=== PATIENT | female | born 1960 | race Caucasian/White ===

== ENCOUNTER 2016-07-02 20:23 | Emergency (ER) | payer MEDICAID ==
[2016-07-02 20:57] VITALS: BP 126/82
--- NOTE | 2016-07-03 05:57 | ER ---
DATE SEEN: 07/02/2016 CHIEF COMPLAINT: Rash. HISTORY OF PRESENT ILLNESS: This is a 56-year-old female with a rash on the right leg. Small lesion that has been there for approximately 1 week. Not causing any pain or itching, but she is worried about flea bite or scabies. REVIEW OF SYSTEMS: All other systems were unremarkable. ALLERGIES: Erythromycin. PHYSICAL EXAMINATION: VITAL SIGNS: Blood pressure is normal and temperature 97.6. SKIN: There is a dime-sized red flat macule on the right calf that is nontender to palpation. IMPRESSION: Rash. PLAN: The rash appears benign. I advised her to ignore it or use hydrocortisone p.r.n. /[id number] [place]
== END 2016-07-02 20:57 | disposition home or self-care (01) ==
LOC: FB.ED 20:23
DX: R21 Rash and other nonspecific skin eruption (principal); Z88.1 Allergy status to other antibiotic agents
CPT/HCPCS: 99283

== ENCOUNTER 2016-11-07 19:55 | Observation (INO) | payer MEDICAID ==
[2016-11-07] MEDS ORDERED: Aluminum Hydroxide/Magnesium Hydroxide Susp 30 ML Cup PO STA (20:20)
[2016-11-07] MEDS: Sodium Chloride 0.9% 1,000 ML IV SCH (20:20)
[2016-11-07] MEDS ORDERED: Pantoprazole 40 MG Vial IVPUSH ONE (20:24)
--- NOTE | 2016-11-07 20:24 | EDM.PDOC ---
ED HPI GENERAL MEDICAL PROBLEM - General Stated Complaint: CHEST PAIN Time Seen by Provider: 11/07/16 19:55 Source of Information: Reports: Patient, Family History Limitations: Reports: No Limitations - History of Present Illness INITIAL COMMENTS - FREE TEXT/NARRATIVE: 56 y.o. w f with h/o DVT, on Coumadin, came to the ed due to acute onset of SSCP with a pain 10/10. as she arrived here in the ed pain was 6/10, No diaphoresis, no N/V/D. pain is not radiating. 149/65 puls 80 Onset: Today Onset Date: 11/07/16 Onset Time: 19:00 Duration: Minutes:, Constant Location: Reports: Chest Quality: Reports: Burning Severity: Mild Improves with: Reports: Eating Worsens with: Reports: Other (pressure) Context: Reports: Other (eating) Associated Symptoms: Reports: No Other Symptoms - Related Data Allergies Allergy/AdvReac Type Severity Reaction Status Date / Time erythromycin base Allergy Rash Verified 11/07/16 20:56 Home Meds: Home Meds Warfarin Sodium [Jantoven] 5 mg PO BEDTIME 12/09/15 [History] atoMOXetine HCl [Strattera] 80 mg PO BEDTIME 12/09/15 [History] atorvaSTATin [Lipitor] 10 mg PO BEDTIME 12/09/15 [History] Past Medical History HEENT History: Reports: Impaired Vision Cardiovascular History: Reports: Blood Clots/VTE/DVT, High Cholesterol, Hypertension Gastrointestinal History: Reports: Cholelithiasis [employer] History: Reports: Other OB/BYN History: hysterectomy, D&C Musculoskeletal History: Reports: Arthritis Psychiatric History: Reports: Depression - Past Surgical History GI Surgical History: Reports: Cholecystectomy, Colonoscopy Other Female Surgeries/Procedures: lump on the breast Social & Family History - Family History Family Medical History: Noncontributory - Tobacco Use Smoking Status *Q: Never Smoker Second Hand Smoke Exposure: No - Caffeine Use Caffeine Use: Reports: Coffee, Soda, Tea - Recreational Drug Use Recreational Drug Use: No ED ROS GENERAL - Review of Systems Review Of Systems: See Below Constitutional: Reports: No Symptoms HEENT: Reports: No Symptoms Respiratory: Reports: No Symptoms Cardiovascular: Reports: Chest Pain Endocrine: Reports: No Symptoms GI/Abdominal: Reports: No Symptoms : Reports: No Symptoms Musculoskeletal: Reports: No Symptoms Skin: Reports: No Symptoms Neurological: Reports: No Symptoms Psychiatric: Reports: No Symptoms Hematologic/Lymphatic: Reports: No Symptoms Immunologic: Reports: No Symptoms ED EXAM, GENERAL - Physical Exam Exam: See Below Exam Limited By: No Limitations General Appearance: Alert, WD/WN, Mild Distress, Obese Eye Exam: Bilateral Eye: Normal Inspection Ears: Normal External Exam Ear Exam: Bilateral Ear: Auricle Normal Nose: Normal Inspection, Normal Mucosa Throat/Mouth: Normal Inspection, Normal Lips Head: Atraumatic, Normocephalic Neck: Normal Inspection, Supple, Non-Tender Respiratory/Chest: No Respiratory Distress, Lungs Clear, Normal Breath Sounds, No Accessory Muscle Use Cardiovascular: Normal Peripheral Pulses, Regular Rate, Rhythm, No Edema, No Gallop, No JVD, No Murmur Peripheral Pulses: 1+: Femoral (L), Femoral (R) GI/Abdominal: Normal Bowel Sounds (Female) Exam: Deferred Rectal (Female) Exam: Deferred Back Exam: Normal Inspection Extremities: Normal Inspection Neurological: Alert, Oriented, CN II-XII Intact Psychiatric: Normal Affect, Normal Mood Skin Exam: Warm, Dry, Intact, Normal Color EKG INTERPRETATION EKG Date: 11/07/16 Time: 20:00 Rhythm: NSR Rate (Beats/Min): 80 [place]: Normal P-Wave: Present QRS: Normal ST-T: Normal QT: Normal Comparison: NA - No Prior EKG Course - Vital Signs Text/Narrative:: 56 y.o. w f with h/o DVT, on Coumadin, came to the ed due to acute onset of SSCP with a pain 10/10. as she arrived here in the ed pain was 6/10, No diaphoresis, no N/V/D. pain is not radiating. 149/65 pulse 80 PE: Morbid obese w f c/o SSCP Imaging: CXR NAD ECG: NSR please see note above Labs: CBC and BMP normal Troponin < 0.01 D Dimer <100 Impression: Substernal chest pain, H/O DVT (on Coumadin), obesity. DDx Gastritis , CW pain, esophagitis Tx: Pt refused ASA because she is on Coumadin, NTG ointment, NS. Protonix, Maalox Reexam: Pain improved to 2/10 Plan: Admit for observation Last Recorded V/S: Last Vital Signs Temp 36.6 C 11/07/16 21:59 Pulse 72 11/07/16 21:59 Resp 16 11/07/16 21:59 BP 118/68 11/07/16 21:59 Pulse Ox 96 11/07/16 21:59 - Orders/Labs/Meds Orders: Active Orders 24 hr Category Date Time Status EKG Documentation Completion [RC] ASDIRECTED Care 11/07/16 20:13 Active Chest 2V [CR] Stat Exams 11/07/16 20:09 Taken Sodium Chloride 0.9% [Normal Saline] 1,000 ml Med 11/07/16 20:15 Active IV ASDIRECTED EKG 12 Lead [EK] Routine Ther 11/07/16 20:12 Ordered Medication Orders Docusate Sodium (Colace) 100 mg PO BID PRN PRN Reason: Constipation Sodium Chloride (Normal Saline) 1,000 mls @ 125 mls/hr IV ASDIRECTED KEREN Last Admin: 11/07/16 20:20 Dose: 125 mls/hr Ondansetron HCl (Zofran) 4 mg IV Q4H PRN PRN Reason: Nausea/Vomiting Pantoprazole Sodium (Protonix Iv) 40 mg IVPUSH Q12H KEREN Sodium Chloride (Saline Flush) 10 ml FLUSH ASDIRECTED PRN PRN Reason: Keep Vein Open Labs: Laboratory Tests 11/07/16 11/07/16 11/07/16 Range/Units 20:15 20:15 20:15 WBC 10.9 (4.5-12.0) X10-3/uL RBC 5.26 H (3.23-5.20) x10(6)uL Hgb 14.8 (11.5-15.5) g/dL Hct 44.8 (30.0-51.3) % MCV 85.2 (80-96) fL MCH 28.2 (27.7-33.6) pg MCHC 33.1 (32.2-35.4) g/dL RDW 13.9 (11.5-15.5) % Plt Count 309 (125-369) X10(3)uL MPV 8.2 (7.4-10.4) fL Neut % (Auto) 65.0 (46-82) % Lymph % (Auto) 26.7 (13-37) % [place] % (Auto) 5.1 (4-12) % Eos % (Auto) 3 (1.0-5.0) % Baso % (Auto) 1 (0-2) % Neut # (Auto) 7.0 (1.6-8.3) # Lymph # (Auto) 2.9 (0.6-5.0) # [place] # (Auto) 0.6 (0.0-1.3) # Eos # (Auto) 0.3 (0.0-0.8) # Baso # (Auto) 0.1 (0.0-0.2) # PT 21.1 H (8.7-11.1) INR 2.06 H (0.89-1.13) D-Dimer, Quantitative < 100 L (100-400) ng/mL Sodium (135-145) mmol/L Potassium (3.5-5.3) mmol/L Chloride (100-110) mmol/L Carbon Dioxide (23-29) mmol/L BUN (5-20) mg/dL Creatinine (0.6-1.3) mg/dL Est Cr Clr Drug Dosing Estimated GFR (MDRD) (>60) BUN/Creatinine Ratio (9-20) Glucose (80-116) mg/dL Calcium (8.6-10.2) mg/dL Troponin I (0.02-0.06) NG/ML 11/07/16 11/07/16 Range/Units 20:15 20:15 WBC (4.5-12.0) X10-3/uL RBC (3.23-5.20) x10(6)uL Hgb (11.5-15.5) g/dL Hct (30.0-51.3) % MCV (80-96) fL MCH (27.7-33.6) pg MCHC (32.2-35.4) g/dL RDW (11.5-15.5) % Plt Count (125-369) X10(3)uL MPV (7.4-10.4) fL Neut % (Auto) (46-82) % Lymph % (Auto) (13-37) % [place] % (Auto) (4-12) % Eos % (Auto) (1.0-5.0) % Baso % (Auto) (0-2) % Neut # (Auto) (1.6-8.3) # Lymph # (Auto) (0.6-5.0) # [place] # (Auto) (0.0-1.3) # Eos # (Auto) (0.0-0.8) # Baso # (Auto) (0.0-0.2) # PT (8.7-11.1) INR (0.89-1.13) D-Dimer, Quantitative (100-400) ng/mL Sodium 139 (135-145) mmol/L Potassium 3.7 (3.5-5.3) mmol/L Chloride 104 (100-110) mmol/L Carbon Dioxide 27 (23-29) mmol/L BUN 9 (5-20) mg/dL Creatinine 0.6 (0.6-1.3) mg/dL Est Cr Clr Drug Dosing TNP Estimated GFR (MDRD) > 60 (>60) BUN/Creatinine Ratio 15.0 (9-20) Glucose 94 (80-116) mg/dL Calcium 9.1 (8.6-10.2) mg/dL Troponin I < 0.01 L (0.02-0.06) NG/ML Meds: Medications Generic Name Dose Route Start Last Admin Trade Name Freq PRN Reason Stop Dose Admin Docusate Sodium 100 mg 11/07/16 21:53 Colace PO BID PRN Constipation Sodium Chloride 1,000 mls @ 125 mls/hr 11/07/16 20:15 11/07/16 20:20 Normal Saline IV 125 mls/hr ASDIRECTED KEREN Administration Ondansetron HCl 4 mg 11/07/16 21:53 Zofran IV Q4H PRN Nausea/Vomiting Pantoprazole Sodium 40 mg 11/07/16 22:00 Protonix Iv IVPUSH Q12H KEREN Sodium Chloride 10 ml 11/07/16 21:53 Saline Flush FLUSH ASDIRECTED PRN Keep Vein Open Discontinued Medications Generic Name Dose Route Start Last Admin Trade Name Freq PRN Reason Stop Dose Admin Al Hydroxide/Mg Hydroxide 30 ml 11/07/16 20:20 11/07/16 20:25 Mag-Al Susp PO 11/07/16 20:21 30 ml ONETIME STA Administration Nitroglycerin 1 gm 11/07/16 20:14 11/07/16 21:05 Nitro-Bid 2% TOP 11/07/16 20:15 1 gm ONETIME ONE Administration Pantoprazole Sodium 40 mg 11/07/16 20:24 11/07/16 20:39 Protonix Iv IVPUSH 11/07/16 20:25 40 mg ONETIME ONE Administration Departure - Departure Time of Disposition: 21:53 Disposition: Refer to Observation Condition: Fair Clinical Impression: Chest pain Qualifiers: Chest pain type: unspecified Qualified Code(s): R07.9 - Chest pain, unspecified - My Orders Last 24 Hours: My Active Orders 11/07/16 20:09 Chest 2V [CR] Stat 11/07/16 20:12 EKG 12 Lead [EK] Routine 11/07/16 20:13 EKG Documentation Completion [RC] ASDIRECTED 11/07/16 20:15 Sodium Chloride 0.9% [Normal Saline] 1,000 ml IV ASDIRECTED - Assessment/Plan Last 24 Hours: My Active Orders 11/07/16 20:09 Chest 2V [CR] Stat 11/07/16 20:12 EKG 12 Lead [EK] Routine 11/07/16 20:13 EKG Documentation Completion [RC] ASDIRECTED 11/07/16 20:15 Sodium Chloride 0.9% [Normal Saline] 1,000 ml IV ASDIRECTED
[2016-11-07] MEDS: Nitroglycerin 2% Oint 1 GM UD Packet TOP ONE ×2 (20:54→21:05)
[2016-11-07] MEDS ORDERED: Docusate Sodium 100 MG Cap PO PRN (21:53)
[2016-11-07] MEDS ORDERED: Ondansetron 4 MG/2 ML SDV IV PRN (21:53)
[2016-11-07] MEDS ORDERED: Sodium Chloride 0.9% 10 ML Syringe FLUSH PRN (21:53)
[2016-11-07] MEDS: Pantoprazole 40 MG Vial IVPUSH SCH (23:11)
[2016-11-08] MEDS: Sodium Chloride 0.9% 1,000 ML IV SCH (04:20)
[2016-11-08] MEDS ORDERED: Aluminum Hydroxide/Magnesium Hydroxide Susp 30 ML Cup PO ONE (09:13)
[2016-11-08] MEDS ORDERED: Lidocaine 2% Viscous Solution 15 ML Cup PO ONE (09:15)
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
[2016-11-08] MEDS: Pantoprazole 40 MG Vial IVPUSH SCH (10:01)
--- NOTE | 2016-11-08 10:16 | PCM.SN ---
- Free Text/Narrative Note: Patient describes symptoms is very vague. I gave her a GI cocktail 15 mL of Mylanta and 15 mL of viscous lidocaine. Patient had more than 50% improvement in symptoms.
[2016-11-08] MEDS ORDERED: Pantoprazole 40 MG Tab.CR PO SCH (10:30)
[2016-11-08] MEDS ORDERED: Sucralfate 1 GM Tab PO SCH (11:30)
[2016-11-08] MEDS ORDERED: Acetaminophen 325 MG Tab PO PRN (12:30)
[2016-11-08 13:40] VITALS: BP 142/73
--- NOTE | 2016-11-08 14:40 | PCM.SN ---
- Free Text/Narrative Note: Patient denies any chest pain. Stiffness her stomach feels much better with the medication. Discharged to home
--- NOTE | 2016-11-08 14:46 | PCM.DCSUM1 ---
Discharge Summary - Hospital Course Free Text/Narrative:: Hospital course-patient was admitted initially put on nitroglycerin patch then was taken off. When I saw her she is very vague about her symptoms and almost pointing to more abdominal pain than chest pain. She denied shortness of breath , diaphoresis, arm pain. She had EKGs that showed nonspecific ST abnormalities in lateral leads 3 EKG is. She had 3 troponins that were normal. D-dimer was within normal limits. Gave her a GI cocktail with Mylanta and viscous lidocaine. This helped her immensely. I watched her some more and put her on Protonix by mouth and Carafate with each meal. Patient was much improved. This is most likely GI in etiology. We'll discharge her home to see Dr. Patel back in one week. Set up for a stress test outpatient. Brief History: This is a 56-year-old female patient states she was at her computer at 7 PM and she had an intense pain over her sternum. She denied any shortness of breath, radiation, diaphoresis. She says she has little nausea but she has normally with her neck pain which she also has. She was seen in the emergency room and admitted. She states now the pain is more in the epigastric mid abdominal. 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 She does have a history of hyperlipidemia and hypertension. She denies history of diabetes or smoking. She denies family history or personal history of coronary artery disease. She denies coughing, shortness of breath, wheezing. - Discharge Data Discharge Date: 11/08/16 Discharge Disposition: Home, Self-Care 01 Condition: Good - Discharge Diagnosis/Problem(s) (1) Chest pain SNOMED Code(s): 80469151 ICD Code: R07.9 - CHEST PAIN, UNSPECIFIED Status: Acute Current Visit: Yes Qualifiers: Chest pain type: unspecified Qualified Code(s): R07.9 - Chest pain, unspecified (2) Gastritis SNOMED Code(s): 3865112 ICD Code: K29.70 - GASTRITIS, UNSPECIFIED, WITHOUT BLEEDING Status: Acute Current Visit: Yes - Patient Instructions Diet: Regular Diet as Tolerated Activity: As Tolerated Driving: May Drive Today Showering/Bathing: May Shower Notify Provider of: Increased Pain, Nausea and/or Vomiting Other/Special Instructions: 1. Recheck with Dr. Mynor Patel in 1 week. 2. Set up outpatient stress test. - Discharge Plan Prescriptions/Med Rec: Pantoprazole [ProTONIX] 40 mg PO DAILY@0600 #30 tab.cr Sucralfate [Carafate] 1 gm PO QIDACANDBED #120 tablet Home Medications: Home Meds Warfarin Sodium [Jantoven] 5 mg PO SUTUTHSA 12/09/15 [History] atoMOXetine HCl [Strattera] 80 mg PO BEDTIME 12/09/15 [History] atorvaSTATin [Lipitor] 10 mg PO BEDTIME 12/09/15 [History] Calcium Carbonate [Calcium] 600 mg PO DAILY 11/08/16 [History] Cholecalciferol (Vitamin D3) [Vitamin D3] 400 unit PO DAILY 11/08/16 [History] Fish Oil/[place]-3 Fatty Acids [Fish Oil 1,000 MG] 1 gm PO BID 11/08/16 [History] Gluc HCl/Csa/Christiana Hy/Hyalur Ac [Glucosamine Chondroitin] 1 cap PO BID 11/08/16 [ History] [place] Supplement 1 tab PO DAILY 11/08/16 [History] Multivitamin [One Daily] 1 tab PO DAILY 11/08/16 [History] Pantoprazole [ProTONIX] 40 mg PO DAILY@0600 #30 tab.cr 11/08/16 [Rx] Sucralfate [Carafate] 1 gm PO QIDACANDBED #120 tablet 11/08/16 [Rx] Warfarin [Coumadin] 2.5 mg PO MOWEFR 11/08/16 [History] Patient Handouts: Venous Thromboembolism Prevention Forms: ED Department Discharge Referrals: Mynor Patel MD [Primary Care Provider] - - Discharge Summary/Plan Comment DC Time >30 min.: No - Patient Data Vitals - Most Recent: Last Vital Signs Temp 98.9 F 11/08/16 13:05 Pulse 86 11/08/16 13:05 Resp 18 11/08/16 13:05 BP 142/73 H 11/08/16 13:05 Pulse Ox 96 11/08/16 13:05 Weight - Most Recent: 244 lb I&O - Last 24 hours: Intake & Output 11/07/16 11/08/16 11/08/16 22:59 06:59 14:59 Intake Total 350 1207 400 Output Total 0 1 Balance 350 1207 399 Lab Results - Last 24 hrs: Laboratory Results - last 24 hr 11/08/16 11/08/16 Range/Units 03:00 10:15 Troponin I < 0.01 L < 0.01 L (0.02-0.06) NG/ML Med Orders - Current: Current Medications Acetaminophen (Tylenol) 650 mg PO Q4H PRN PRN Reason: pain or headache Last Admin: 11/08/16 12:58 Dose: 650 mg Atorvastatin Calcium (Lipitor) 10 mg PO BEDTIME [facility] Calcium Carbonate (Calcium Carbonate/Vitamin D 1250 Mg-200 Unit) 1 tab PO DAILY [facility] Cholecalciferol (Vitamin D3) 400 units PO DAILY [facility] Docusate Sodium (Colace) 100 mg PO BID PRN PRN Reason: Constipation Fish Oil (Fish Oil) 1 gm PO BID [facility] Glucosamine/Chondroitin (Glucosamine-Chondroitin 500-400 Capsule) 1 cap PO BID [facility] Multivitamins/Minerals/Vitamin C (Tab-A-Jaime) 1 tab PO DAILY [facility] Non-Formulary Medication (Atomoxetine Hcl [Strattera]) 80 mg PO BEDTIME [facility] Ondansetron HCl (Zofran) 4 mg IV Q4H PRN PRN Reason: Nausea/Vomiting Pantoprazole Sodium (Protonix) 40 mg PO DAILY@0600 [facility] Last Admin: 11/08/16 11:01 Dose: Not Given Sodium Chloride (Saline Flush) 10 ml FLUSH ASDIRECTED PRN PRN Reason: Keep Vein Open Sucralfate (Carafate) 1 gm PO QIDACANDBED [facility] Last Admin: 11/08/16 10:57 Dose: 1 gm Warfarin Sodium (Coumadin) 2.5 mg PO MoWeFr@1600 [facility] Warfarin Sodium (Coumadin) 5 mg PO [id number]@1600 [facility] Discontinued Medications Al Hydroxide/Mg Hydroxide (Mag-Al Susp) 30 ml PO ONETIME STA Stop: 11/07/16 20:21 Last Admin: 11/07/16 20:25 Dose: 30 ml Al Hydroxide/Mg Hydroxide (Mag-Al Susp) 15 ml PO ONETIME ONE Stop: 11/08/16 09:14 Last Admin: 11/08/16 09:34 Dose: 15 ml Sodium Chloride (Normal Saline) 1,000 mls @ 125 mls/hr IV ASDIRECTED [facility] Last Admin: 11/08/16 04:20 Dose: 125 mls/hr Lidocaine HCl (Xylocaine 2% Viscous) 15 ml PO ONETIME ONE Stop: 11/08/16 09:16 Last Admin: 11/08/16 09:34 Dose: 15 ml Nitroglycerin (Nitro-Bid 2%) 1 gm TOP ONETIME ONE Stop: 11/07/16 20:15 Last Admin: 11/07/16 21:05 Dose: 1 gm Pantoprazole Sodium (Protonix Iv) 40 mg IVPUSH ONETIME ONE Stop: 11/07/16 20:25 Last Admin: 11/07/16 20:39 Dose: 40 mg Pantoprazole Sodium (Protonix Iv) 40 mg IVPUSH Q12H [facility] Last Admin: 11/08/16 10:01 Dose: 40 mg *Q Meaningful Use (DIS) - VTE *Q VTE Criteria *Q: - Stroke *Q Stroke Criteria *Q: - AMI *Q AMI Criteria *Q:
[2016-11-08] MEDS ORDERED: Warfarin 5 MG Tab PO SCH (16:00)
[2016-11-08] MEDS ORDERED: atorvaSTATin 10 MG Tab PO SCH (21:00)
[2016-11-08] MEDS ORDERED: Chondroitin/Glucosamine Cap PO SCH (21:00)
[2016-11-08] MEDS ORDERED: Fish Oil/Omega-3 Fatty Acids 1 Gm Cap PO SCH (21:00)
[2016-11-08] MEDS ORDERED: ATOMOXETINE HCL 80 MG PO SCH (21:00)
[2016-11-09] MEDS ORDERED: Calcium Carbonate/Vitamin D3 1250 MG-200 Unit Tab PO SCH (09:00)
[2016-11-09] MEDS ORDERED: Multivitamin Tab PO SCH (09:00)
[2016-11-09] MEDS ORDERED: Cholecalciferol (Vitamin D3) 400 Unit Tab PO SCH (09:00)
--- NOTE | 2016-11-10 15:10 | CR ---
INDICATION: Chest pain. CHEST: PA and lateral views of the chest were obtained 11/07/2016. No comparisons were available. The left costophrenic angle was not fully included on the study, limiting the PA view slightly. Slight flattening of diaphragm leaves and prominent AP diameter with minimal hyperaeration suggests the possibility of COPD. The heart appeared mildly enlarged with LVE. The aorta is tortuous with calcification in the arch. Bony structures appear to be intact. Evidence of exogenous obesity is noted. A definite active infiltrate or effusion was not identified, although interstitial markings are slightly prominent, suggesting the possibility of a mild degree of interstitial fibrosis. IMPRESSION: No acute process. Multiple findings as noted above. MTDD
[2016-11-10] MEDS ORDERED: Warfarin 2.5 MG Tab PO SCH (16:00)
== END 2016-11-08 16:10 | disposition home or self-care (01) ==
LOC: FB.ED 19:55 → FB.MS 21:53
PROVIDERS: ADMIT Emergency Medicine; ATTEND Family Medicine
DX: R07.89 Other chest pain (principal); K29.70 Gastritis, unspecified, without bleeding; I10 Essential (primary) hypertension; E78.00 Pure hypercholesterolemia, unspecified; F32.9 Major depressive disorder, single episode, unspecified; Z86.718 Personal history of other venous thrombosis and embolism; Z90.710 Acquired absence of both cervix and uterus; Z90.49 Acquired absence of other specified parts of digestive tract; Z98.890 Other specified postprocedural states; Z79.01 Long term (current) use of anticoagulants; Z79.899 Other long term (current) drug therapy
CPT/HCPCS: 36415; 71020; 80048; 84484; 85025; 85379; 85610; 93005; 96361; 96374; 96376; 99285; A9270; C9113; G0378; J7040

== ENCOUNTER 2016-12-22 20:33 | Emergency (ER) | payer MEDICAID ==
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
[2016-12-22 22:05] VITALS: BP 148/75
== END 2016-12-22 22:03 | disposition home or self-care (01) ==
LOC: FB.ED 20:33
DX: I87.2 Venous insufficiency (chronic) (peripheral) (principal); E78.00 Pure hypercholesterolemia, unspecified; I10 Essential (primary) hypertension; M19.90 Unspecified osteoarthritis, unspecified site; Z88.1 Allergy status to other antibiotic agents; Z79.01 Long term (current) use of anticoagulants; Z90.710 Acquired absence of both cervix and uterus; Z79.899 Other long term (current) drug therapy; Z90.49 Acquired absence of other specified parts of digestive tract
CPT/HCPCS: 36415; 82947; 85027; 85610; 99283

== ENCOUNTER 2018-07-07 21:19 | Emergency (ER) | payer MEDICAID ==
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
[2018-07-07 23:14] VITALS: BP 107/58
== END 2018-07-07 23:10 | disposition home or self-care (01) ==
LOC: FB.ED 21:19
DX: G89.18 Other acute postprocedural pain (principal); Z96.641 Presence of right artificial hip joint; E66.01 Morbid (severe) obesity due to excess calories; Z68.42 Body mass index [BMI] 45.0-49.9, adult; Z88.1 Allergy status to other antibiotic agents; I10 Essential (primary) hypertension; E78.00 Pure hypercholesterolemia, unspecified; Z79.01 Long term (current) use of anticoagulants; Z79.899 Other long term (current) drug therapy
CPT/HCPCS: 36415; 73502-RT; 80053; 83605; 85025; 87040; 99283-25

== ENCOUNTER 2019-01-29 14:27 | Emergency (ER) | payer MEDICAID ==
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
[2019-01-29] MEDS ORDERED: diazePAM 5 MG/ML MDV IV ONE (15:31)
[2019-01-29] MEDS ORDERED: Ondansetron 4 MG/2 ML SDV IVPUSH ONE (15:31)
[2019-01-29] MEDS ORDERED: Sodium Chloride 0.9% 1,000 ML IV SCH (15:45)
[2019-01-29] MEDS ORDERED: Sodium Chloride 0.9% 500 ML IV ONE (17:48)
[2019-01-29 20:04] VITALS: BP 137/85; PULSE 86
== END 2019-01-29 17:45 ==
LOC: FB.ED 14:27
DX: R42 Dizziness and giddiness (principal); R11.2 Nausea with vomiting, unspecified; I10 Essential (primary) hypertension; E78.5 Hyperlipidemia, unspecified; I82.409 Acute embolism and thrombosis of unspecified deep veins of unspecified lower extremity; Z88.1 Allergy status to other antibiotic agents; Z79.899 Other long term (current) drug therapy; Z79.01 Long term (current) use of anticoagulants
CPT/HCPCS: 36415; 70450; 71045; 80053; 81001; 82962; 83690; 85025; 85610; 93005; 96361; 96374; 96375; 99285; J2405; J3360; J7030; J7040

== ENCOUNTER 2019-06-15 06:38 | Day surgery (SDC) | payer MEDICAID ==
[2019-06-15] MEDS ORDERED: Lidocaine 1% PF 2 ML SDV INJECT ONE (06:39)
[2019-06-15] MEDS ORDERED: Propofol 200 MG/20 ML SDV IV ONE (06:39)
[2019-06-15] MEDS ORDERED: Lactated Ringers 1,000 ML IV SCH (06:45)
--- NOTE | 2019-06-15 08:28 | PCM.OPNOTE ---
- General Post-Op/Procedure Note Date of Surgery/Procedure: 06/15/19 Operative Procedure(s): c scope with biopsy Findings: transverse colon polyp Pre Op Diagnosis: screening Post-Op Diagnosis: transverse colon polyp Anesthesia Technique: MAC Primary Surgeon: Sonny Gordillo Anesthesia Provider: Josesito Rodrigez Pathology: colon polyp Complications: None Condition: Good Free Text/Narrative:: see dictation
--- NOTE | 2019-06-15 08:34 | OR ---
DATE OF OPERATION: 06/15/2019 SURGEON: Sonny Gordillo MD PROCEDURE PERFORMED: Colonoscopy with cold forceps biopsy. PREOPERATIVE DIAGNOSIS: Colon cancer screening. POSTOPERATIVE DIAGNOSIS: Transverse colon polyp. INDICATIONS FOR PROCEDURE: This is a 59-year-old white female who presents for screening colonoscopy. Her last one was 10 years ago. She is without complaints. DESCRIPTION OF OPERATION: After an excellent IV sedation was administered, digital rectal exam was performed. No marked abnormality was noted. Flexible colonoscope was inserted and advanced to the cecum. The prep was excellent. The following findings were noted. Ascending colon, unremarkable. Transverse colon, a small polypoid lesion, biopsied with the biopsy forceps in its entirety and submitted in 1 container. Descending colon, unremarkable. Sigmoid and rectum, unremarkable. Colon was deflated. The patient tolerated the procedure well. Results will be sent to the patient via letter. /[id number] /MODL
[2019-06-15 09:12] VITALS: BP 145/75; PULSE 71
== END 2019-06-15 09:25 | disposition home or self-care (01) ==
LOC: FB.SDS 06:38
PROVIDERS: ATTEND Surgery
DX: Z12.11 Encounter for screening for malignant neoplasm of colon (principal); D12.3 Benign neoplasm of transverse colon; E66.9 Obesity, unspecified; E78.2 Mixed hyperlipidemia; Z90.49 Acquired absence of other specified parts of digestive tract; Z79.01 Long term (current) use of anticoagulants; Z79.899 Other long term (current) drug therapy; Z88.1 Allergy status to other antibiotic agents; Z68.41 Body mass index [BMI] 40.0-44.9, adult
CPT/HCPCS: 36415; 45380; 85610; 88305; J2001; J2704; J7120

== ENCOUNTER 2019-11-22 23:42 | Emergency (ER) | payer MEDICAID ==
[2019-11-23 00:14] VITALS: PULSE 77
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
[2019-11-23 02:23] VITALS: BP 156/95
== END 2019-11-23 01:29 | disposition home or self-care (01) ==
LOC: FB.ED 23:42
DX: I80.01 Phlebitis and thrombophlebitis of superficial vessels of right lower extremity (principal); I10 Essential (primary) hypertension; E66.9 Obesity, unspecified; F41.9 Anxiety disorder, unspecified; F32.9 Major depressive disorder, single episode, unspecified; Z88.1 Allergy status to other antibiotic agents; Z86.73 Personal history of transient ischemic attack (TIA), and cerebral infarction without residual deficits; Z79.899 Other long term (current) drug therapy; Z90.49 Acquired absence of other specified parts of digestive tract; Z90.710 Acquired absence of both cervix and uterus; Z68.41 Body mass index [BMI] 40.0-44.9, adult
CPT/HCPCS: 99283

== ENCOUNTER 2020-01-28 22:49 | Emergency (ER) | payer MEDICAID ==
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
[2020-01-28 23:35] VITALS: BP 171/77; PULSE 90
== END 2020-01-29 01:25 | disposition home or self-care (01) ==
LOC: FB.ED 22:49
DX: H11.32 Conjunctival hemorrhage, left eye (principal); E78.00 Pure hypercholesterolemia, unspecified; I10 Essential (primary) hypertension; F90.9 Attention-deficit hyperactivity disorder, unspecified type; E66.9 Obesity, unspecified; Z79.01 Long term (current) use of anticoagulants; Z88.1 Allergy status to other antibiotic agents; Z86.73 Personal history of transient ischemic attack (TIA), and cerebral infarction without residual deficits; Z79.899 Other long term (current) drug therapy; Z86.711 Personal history of pulmonary embolism; Z68.41 Body mass index [BMI] 40.0-44.9, adult
CPT/HCPCS: 36415; 85610; 99283

== ENCOUNTER 2020-02-11 23:11 | Emergency (ER) | payer MEDICAID ==
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
[2020-02-11] MEDS ORDERED: Furosemide 20 MG Tab PO ONE (23:38)
[2020-02-12 06:28] VITALS: BP 156/83; PULSE 74
== END 2020-02-12 00:10 | disposition home or self-care (01) ==
LOC: FB.ED 23:11
DX: M79.89 Other specified soft tissue disorders (principal); I10 Essential (primary) hypertension; E78.00 Pure hypercholesterolemia, unspecified; E66.9 Obesity, unspecified; Z88.1 Allergy status to other antibiotic agents; Z90.710 Acquired absence of both cervix and uterus; Z98.51 Tubal ligation status; Z90.49 Acquired absence of other specified parts of digestive tract; Z79.899 Other long term (current) drug therapy; Z68.41 Body mass index [BMI] 40.0-44.9, adult
CPT/HCPCS: 99283; A9270

== ENCOUNTER 2020-03-11 23:03 | Emergency (ER) | payer MEDICAID ==
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
[2020-03-12 00:39] VITALS: BP 155/77; PULSE 76
== END 2020-03-12 00:36 | disposition home or self-care (01) ==
LOC: FB.ED 23:03
DX: I10 Essential (primary) hypertension (principal); R79.1 Abnormal coagulation profile; Z88.1 Allergy status to other antibiotic agents; E78.00 Pure hypercholesterolemia, unspecified; F98.8 Other specified behavioral and emotional disorders with onset usually occurring in childhood and adolescence; Z79.899 Other long term (current) drug therapy; Z86.73 Personal history of transient ischemic attack (TIA), and cerebral infarction without residual deficits; E66.9 Obesity, unspecified; Z68.42 Body mass index [BMI] 45.0-49.9, adult
CPT/HCPCS: 36415; 85379; 99282; 99283

== ENCOUNTER 2021-02-25 22:25 | Emergency (ER) | payer MEDICARE, MEDICAID ==
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
[2021-02-28 14:55] VITALS: BP 149/77; PULSE 80
== END 2021-02-25 23:15 | disposition home or self-care (01) ==
LOC: FB.ED 22:25
DX: L72.3 Sebaceous cyst (principal); E78.00 Pure hypercholesterolemia, unspecified; I10 Essential (primary) hypertension; E66.9 Obesity, unspecified; Z86.711 Personal history of pulmonary embolism; Z88.1 Allergy status to other antibiotic agents; Z79.01 Long term (current) use of anticoagulants; Z79.899 Other long term (current) drug therapy
CPT/HCPCS: 99282

== ENCOUNTER 2021-03-11 11:05 | Emergency (ER) | payer MEDICARE, MEDICAID ==
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
[2021-03-11 12:47] VITALS: BP 149/89; PULSE 78
== END 2021-03-11 12:36 | disposition home or self-care (01) ==
LOC: FB.ED 11:05
DX: R07.89 Other chest pain (principal); E66.9 Obesity, unspecified; E78.00 Pure hypercholesterolemia, unspecified; I10 Essential (primary) hypertension; Z86.73 Personal history of transient ischemic attack (TIA), and cerebral infarction without residual deficits; Z68.38 Body mass index [BMI] 38.0-38.9, adult; Z88.1 Allergy status to other antibiotic agents; Z79.899 Other long term (current) drug therapy; Z79.01 Long term (current) use of anticoagulants
CPT/HCPCS: 36415; 80053; 84484; 85025; 85379; 85610; 99283

== ENCOUNTER 2021-07-20 19:08 | Emergency (ER) | payer MEDICARE, MEDICAID ==
[2021-07-21 02:38] VITALS: BP 152/88; PULSE 64
== END 2021-07-20 22:34 | disposition home or self-care (01) ==
LOC: FB.ED 19:08
DX: H57.12 Ocular pain, left eye (principal); E78.00 Pure hypercholesterolemia, unspecified; I10 Essential (primary) hypertension; E66.9 Obesity, unspecified; Z86.73 Personal history of transient ischemic attack (TIA), and cerebral infarction without residual deficits; Z68.30 Body mass index [BMI] 30.0-30.9, adult; Z88.1 Allergy status to other antibiotic agents; Z79.899 Other long term (current) drug therapy; Z79.01 Long term (current) use of anticoagulants
CPT/HCPCS: 36415; 85610; 99283

== ENCOUNTER 2021-11-26 20:38 | Emergency (ER) | payer MEDICARE, MEDICAID ==
[2021-11-26 21:15] VITALS: BP 168/88; PULSE 82
== END 2021-11-26 21:15 | disposition home or self-care (01) ==
LOC: FB.ED 20:38
DX: M79.605 Pain in left leg (principal); E78.00 Pure hypercholesterolemia, unspecified; I10 Essential (primary) hypertension; E66.9 Obesity, unspecified; Z68.30 Body mass index [BMI] 30.0-30.9, adult; Z86.73 Personal history of transient ischemic attack (TIA), and cerebral infarction without residual deficits; Z88.1 Allergy status to other antibiotic agents; Z79.01 Long term (current) use of anticoagulants; Z91.013 Allergy to seafood; Z79.899 Other long term (current) drug therapy
CPT/HCPCS: 99283

== ENCOUNTER 2022-11-29 17:46 | Emergency (ER) | payer MEDICARE, MEDICAID ==
[2022-11-29 18:53] LABS: BASOPHILS ABSOLUTE AUTO 0.1 x10-3/uL (0.0-0.1); BASOPHILS PERCENT AUTO 0.7 % (0.2-1.5); EOSINOPHILS ABSOLUTE AUTO 0.1 x10-3/uL (0.0-0.8); EOSINOPHILS PERCENT AUTO 1.7 % (0.6-8.1); HEMATOCRIT 41.9 % (34.2-48.2); LYMPHOCYTES ABSOLUTE AUTO 1.9 x10-3/uL (1.0-4.4); LYMPHOCYTES PERCENT AUTO 23.5 % (18.4-52.1); MEAN CORPUSCULAR HEMOGLOBIN 30.1 pg (23.9-33.9); MEAN CORPUSCULAR HGB CONC 33.5 g/dL (31.9-34.8); MEAN CORPUSCULAR VOLUME 89.9 fL (76.7-100.5); MEAN PLATELET VOLUME 7.2 fL (7.1-12.4); MONOCYTES ABSOLUTE AUTO 0.5 x10-3/uL (0.3-1.0); MONOCYTES PERCENT AUTO 5.8 % (4.4-15.7); NEUTROPHILS ABSOLUTE AUTO 5.7 x10-3/uL (1.5-6.3); NEUTROPHILS PERCENT AUTO 68.3 % (30.8-76.2); PLATELET COUNT,PLT 286 x10(3)uL (151-488); RED BLOOD CELL COUNT 4.66 x10(6)uL (3.60-5.20); RED CELL DISTRIBUTION WIDTH 14.8 % (12.3-16.5); WHITE BLOOD CELL COUNT,WBC 8.3 x10-3/uL (3.0-10.3)
[2022-11-29 18:54] LABS: BILIRUBIN,URINE NEGATIVE (NEGATIVE); GLUCOSE,URINE NORMAL (NORMAL); KETONES,URINE NEGATIVE (NEGATIVE); LEUKOCYTE ESTERASE,URINE NEGATIVE (NEGATIVE); NITRITE,URINE NEGATIVE (NEGATIVE); OCCULT BLOOD,URINE NEGATIVE (NEGATIVE); PROTEIN,URINE NEGATIVE (NEGATIVE); UROBILINOGEN,URINE NORMAL (NEGATIVE)
[2022-11-29 18:55] LABS: APPEARANCE,URINE CLEAR (CLEAR); COLOR,URINE YELLOW (YELLOW); RBC,URINE 0-5 (0-5); SQUAMOUS EPITHELIAL CELLS,UR RARE (NS,R,O); WBC,URINE 0-5 (0-5)
[2022-11-29 18:59] LABS: BLOOD UREA NITROGEN,BUN 15 mg/dL (7-18); BUN/CREATININE RATIO 21.4 (9-20); CALCIUM 8.6 mg/dL (8.6-10.2); CARBON DIOXIDE,CO2 34 mmol/L (21-32); CHLORIDE,CL 105 mmol/L (100-110); CREATININE 0.7 mg/dL (0.55-1.02); EST CRCL DRUG DOSING (CG) 64.21 mL/min; ESTIMATED GFR 97 mL/min (>60); GLUCOSE RANDOM 115 mg/dL (80-116); POTASSIUM,K 4.2 mmol/L (3.5-5.3); SODIUM,NA 143 mmol/L (135-145)
[2022-11-29 19:05] LABS: A/G RATIO 0.9; ALANINE AMINOTRANSFERASE,ALT 32 U/L (12-36); ALBUMIN 3.3 g/dL (3.2-4.6); ALKALINE PHOSPHATASE 128 IU/L (56-112); ASPARTATE AMNIOTRANSFERASE,AST 20 IU/L (5-25); BILIRUBIN TOTAL 0.4 mg/dL (0.1-1.3); MAGNESIUM 2.1 mg/dL (1.8-2.5); PROTEIN TOTAL,TP 7.2 g/dL (6.0-8.0)
[2022-11-29 20:15] VITALS: BP 140/78; PULSE 82
== END 2022-11-29 20:04 | disposition home or self-care (01) ==
LOC: FB.ED 17:46
DX: R19.7 Diarrhea, unspecified (principal); E66.9 Obesity, unspecified; I10 Essential (primary) hypertension; E78.00 Pure hypercholesterolemia, unspecified; Z68.30 Body mass index [BMI] 30.0-30.9, adult; Z79.01 Long term (current) use of anticoagulants; Z88.1 Allergy status to other antibiotic agents
CPT/HCPCS: 36415; 80053; 81001; 83735; 85025; 86140; 99284

== ENCOUNTER 2023-09-19 17:57 | Emergency (ER) | payer MEDICARE ==
[2023-09-19 18:56] LABS: BASOPHILS PERCENT AUTO 0.7 % (0.2-1.5); EOSINOPHILS PERCENT AUTO 0.6 % (0.6-8.1); HEMATOCRIT 44.8 % (34.2-48.2); HEMOGLOBIN 14.3 g/dL (11.4-15.5); LYMPHOCYTES ABSOLUTE AUTO 1.5 x10-3/uL (1.0-4.4); LYMPHOCYTES PERCENT AUTO 21.4 % (18.4-52.1); MEAN CORPUSCULAR HEMOGLOBIN 29.4 pg (23.9-33.9); MEAN CORPUSCULAR VOLUME 91.8 fL (76.7-100.5); MEAN PLATELET VOLUME 8.1 fL (7.1-12.4); MONOCYTES ABSOLUTE AUTO 0.4 x10-3/uL (0.3-1.0); NEUTROPHILS PERCENT AUTO 71.3 % (30.8-76.2); PLATELET COUNT,PLT 255 x10(3)uL (151-488); RED BLOOD CELL COUNT 4.88 x10(6)uL (3.60-5.20); RED CELL DISTRIBUTION WIDTH 14.6 % (12.3-16.5)
[2023-09-19 18:58] LABS: BLOOD UREA NITROGEN,BUN 12 mg/dL (7-18); CALCIUM 8.5 mg/dL (8.6-10.2); CARBON DIOXIDE,CO2 31 mmol/L (21-32); CHLORIDE,CL 107 mmol/L (100-110); CREATININE 0.8 mg/dL (0.55-1.02); EST CRCL DRUG DOSING (CG) 57.99 mL/min; ESTIMATED GFR 82 mL/min (>60); GLUCOSE RANDOM 129 mg/dL (80-116); POTASSIUM,K 4.6 mmol/L (3.5-5.3); SODIUM,NA 143 mmol/L (135-145)
[2023-09-19 19:12] LABS: TROPONIN I 5.6 pg/mL (4.0-60.3); TSH ULTRASENSITIVE 1.19 IU/mL (0.36-3.74)
[2023-09-19 20:08] VITALS: BP 147/79; PULSE 64
[2023-09-19] MEDS: ALPRAZolam 0.25 MG Tab PO ONE (20:08)
== END 2023-09-19 20:10 | disposition home or self-care (01) ==
LOC: FB.ED 17:57
DX: R25.1 Tremor, unspecified (principal); E78.00 Pure hypercholesterolemia, unspecified; I10 Essential (primary) hypertension; E66.9 Obesity, unspecified; Z68.26 Body mass index [BMI] 26.0-26.9, adult; Z86.16 Personal history of COVID-19; Z90.49 Acquired absence of other specified parts of digestive tract; Z90.710 Acquired absence of both cervix and uterus; Z79.899 Other long term (current) drug therapy; Z88.8 Allergy status to other drugs, medicaments and biological substances
CPT/HCPCS: 36415; 80048; 84443; 84484; 85025; 99283; 99284

== ENCOUNTER 2023-12-16 15:49 | Emergency (ER) | payer OTHER, MEDICARE ==
[2023-12-16 16:46] LABS: BLOOD UREA NITROGEN,BUN 20 mg/dL (7-18); CALCIUM 8.5 mg/dL (8.6-10.2); CARBON DIOXIDE,CO2 32 mmol/L (21-32); CHLORIDE,CL 103 mmol/L (100-110); CREATININE 0.8 mg/dL (0.55-1.02); EST CRCL DRUG DOSING (CG) 55.45 mL/min; ESTIMATED GFR 82 mL/min (>60); GLUCOSE RANDOM 178 mg/dL (80-116); POTASSIUM,K 3.9 mmol/L (3.5-5.3); SODIUM,NA 140 mmol/L (135-145)
[2023-12-16 16:48] LABS: BASOPHILS PERCENT AUTO 0.5 % (0.2-1.5); EOSINOPHILS PERCENT AUTO 0.7 % (0.6-8.1); HEMATOCRIT 45.2 % (34.2-48.2); HEMOGLOBIN 14.8 g/dL (11.4-15.5); LYMPHOCYTES PERCENT AUTO 16.9 % (18.4-52.1); MEAN CORPUSCULAR HEMOGLOBIN 29.8 pg (23.9-33.9); MEAN CORPUSCULAR HGB CONC 32.7 g/dL (31.9-34.8); MEAN CORPUSCULAR VOLUME 91.4 fL (76.7-100.5); MEAN PLATELET VOLUME 7.9 fL (7.1-12.4); MONOCYTES ABSOLUTE AUTO 0.3 x10-3/uL (0.3-1.0); NEUTROPHILS ABSOLUTE AUTO 4.7 x10-3/uL (1.5-6.3); NEUTROPHILS PERCENT AUTO 76.9 % (30.8-76.2); PLATELET COUNT,PLT 235 x10(3)uL (151-488); RED BLOOD CELL COUNT 4.95 x10(6)uL (3.60-5.20); WHITE BLOOD CELL COUNT,WBC 6.1 x10-3/uL (3.0-10.3)
[2023-12-16 16:52] LABS: A/G RATIO 0.8; ALANINE AMINOTRANSFERASE,ALT 29 U/L (12-36); ALBUMIN 3.1 g/dL (3.2-4.6); ALKALINE PHOSPHATASE 87 IU/L (56-112); ASPARTATE AMNIOTRANSFERASE,AST 22 IU/L (5-25); BILIRUBIN TOTAL 0.5 mg/dL (0.1-1.3); D-DIMER QUANTITATIVE 0.21 mg/LFEU (0.0-0.59); PROTEIN TOTAL,TP 6.8 g/dL (6.0-8.0)
[2023-12-16 16:54] LABS: INR 2.95 (1.00-1.24); PROTHROMBIN TIME 28.1 sec (9.0-11.1)
[2023-12-16 16:55] LABS: TROPONIN I 4.9 pg/mL (4.0-60.3)
[2023-12-16 17:01] LABS: C-REACTIVE PROTEIN < 0.50 mg/dL (<0.50)
[2023-12-16 17:19] LABS: BILIRUBIN,URINE NEGATIVE (NEGATIVE); GLUCOSE,URINE NORMAL (NORMAL); KETONES,URINE NEGATIVE (NEGATIVE); LEUKOCYTE ESTERASE,URINE NEGATIVE (NEGATIVE); NITRITE,URINE NEGATIVE (NEGATIVE); OCCULT BLOOD,URINE MODERATE (NEGATIVE); PROTEIN,URINE NEGATIVE (NEGATIVE); UROBILINOGEN,URINE NORMAL (NEGATIVE)
[2023-12-16 17:31] LABS: APPEARANCE,URINE CLEAR (CLEAR); BACTERIA,URINE OCCASIONAL (NS); COLOR,URINE YELLOW (YELLOW); RBC,URINE 0-5 (0-5); SQUAMOUS EPITHELIAL CELLS,UR OCCASIONAL (NS,R,O); WBC,URINE 0-5 (0-5)
[2023-12-16 17:58] VITALS: BP 127/81; PULSE 78
== END 2023-12-16 17:55 | disposition home or self-care (01) ==
LOC: FB.ED 15:49
DX: R55 Syncope and collapse (principal); I10 Essential (primary) hypertension; E78.00 Pure hypercholesterolemia, unspecified; E66.9 Obesity, unspecified; Z86.16 Personal history of COVID-19; Z90.49 Acquired absence of other specified parts of digestive tract; Z90.710 Acquired absence of both cervix and uterus; Z79.01 Long term (current) use of anticoagulants; Z79.899 Other long term (current) drug therapy; Z88.1 Allergy status to other antibiotic agents; Z68.30 Body mass index [BMI] 30.0-30.9, adult
CPT/HCPCS: 36415; 70450; 71046; 80053; 81001; 83605; 84484; 85025; 85379; 85610; 86140; 99285

== ENCOUNTER 2023-12-19 11:32 | Emergency (ER) | payer MEDICARE ==
[2023-12-19 11:55] VITALS: BP 128/76; PULSE 65
== END 2023-12-19 12:12 | disposition home or self-care (01) ==
LOC: FB.ED 11:32
DX: R55 Syncope and collapse (principal); R41.89 Other symptoms and signs involving cognitive functions and awareness; I10 Essential (primary) hypertension; E78.00 Pure hypercholesterolemia, unspecified; E66.9 Obesity, unspecified; Z86.16 Personal history of COVID-19; Z90.49 Acquired absence of other specified parts of digestive tract; Z90.710 Acquired absence of both cervix and uterus; Z79.899 Other long term (current) drug therapy; Z88.1 Allergy status to other antibiotic agents
CPT/HCPCS: 99283

== ENCOUNTER 2024-01-05 09:54 | Emergency (ER) | payer MEDICARE ==
[2024-01-05 11:18] VITALS: BP 138/63; PULSE 58
== END 2024-01-05 11:18 | disposition home or self-care (01) ==
LOC: FB.ED 09:54
DX: R55 Syncope and collapse (principal); E78.00 Pure hypercholesterolemia, unspecified; I10 Essential (primary) hypertension; E66.9 Obesity, unspecified; Z86.73 Personal history of transient ischemic attack (TIA), and cerebral infarction without residual deficits; Z86.16 Personal history of COVID-19; Z79.01 Long term (current) use of anticoagulants; Z79.899 Other long term (current) drug therapy; Z88.1 Allergy status to other antibiotic agents
CPT/HCPCS: 82947; 93005; 99284